=== PATIENT | male | born 1965 | race African-American/Black ===

== ENCOUNTER 2022-09-03 10:20 | Outpatient (CLI) | payer OTHER | END 2022-09-03 10:21 | disposition home or self-care (01) | LOC: DTY/OP 10:20 | PROVIDERS: ATTEND Family Medicine | DX: E11.65 Type 2 diabetes mellitus with hyperglycemia (principal); Z71.3 Dietary counseling and surveillance; Z68.29 Body mass index [BMI] 29.0-29.9, adult | CPT/HCPCS: 97802 ==